=== PATIENT | female | born 1960 | race Native Hawaiian/Other Pacific Islander ===

== ENCOUNTER 2024-09-15 13:49 | Emergency (ER) | payer BC, SELFPAY ==
[2024-09-15 13:50] VITALS: BMI 29.0
[2024-09-15 14:23] VITALS: BP 160/91; PULSE 79; RESP 22; TEMP 36.5; O2SAT 100
--- NOTE | 2024-09-15 14:25 | XR_ITS ---
Examination: CT abdomen and pelvis without contrast. Coronal 3-D reconstructions. Sagittal 2-D reconstructions. Date and time of exam:September 07, 2024 1525 hrs. Indications: Flank pain on the left side beginning 2 hours ago, history kidney stones CTDI: vol (mGy): 9.95 DLP: (mGycm): 506 Technique: Axial images of the abdomen have been obtained, 3 mm slice thickness Intravenous contrast material has not been administered. Low dose protocols were performed. One or more of the following dose reduction techniques were used; automated exposure control, adjustment of the mA and/or KV according to patient size, use of iterative reconstruction technique. Findings: No focal liver or splenic lesions No gallstones Significant bilateral renal parenchymal scar formation with multiple bilateral 1 to 3 mm renal calculi Minimal left hydronephrosis secondary to 3 mm left ureteropelvic junction calculus Atrophic right kidney Aorta demonstrates calcification no aneurysmal dilatation 15 mm fat-containing umbilical hernia Normal appendix No bowel obstruction No diverticulitis Atrophic uterus No bladder mass or bladder calculi Moderate osteopenia Impression: Minimal left hydronephrosis secondary to 3 mm left ureteropelvic junction calculus Bilateral small renal calculi Significant bilateral renal parenchymal scar formation Atrophic right kidney
--- NOTE | 2024-09-15 14:25 | PD.EDRME ---
Rapid Medical Screening Exam RME Arrival date/time: 09/15/24 13:49 63-year-old female past medical history of kidney stones presents emergency department complaining of left flank pain that started today. Chief Complaint: Back Pain/Injury Vital signs: Vital Signs Temperature 97.7 F 09/15/24 14:23 Pulse Rate 79 09/15/24 14:23 Respiratory Rate 22 H 09/15/24 14:23 Blood Pressure 160/91 H 09/15/24 14:23 Pulse Oximetry (%) 100 09/15/24 14:23 Oxygen Delivery Method Room Air 09/15/24 14:23 Vital signs reviewed by provider: Yes
[2024-09-15] MEDS: KETOROLAC INJ 60 MG/2 ML VIAL 30 MG IM ×2 (14:31→16:38)
[2024-09-15 15:11] VITALS: BP 184/91; PULSE 87; RESP 16; TEMP 36.6; O2SAT 100
[2024-09-15 15:33] LABS: Collection Type, Urine Clean Catch
[2024-09-15 15:35] LABS: Basophils # (Auto) 0.1 Thou/mm3 (0.0-0.2); Basophils % (Auto) 0 % (0-2.5); Eosinophils # (Auto) 0.1 Thou/mm3 (0.0-0.5); Eosinophils % (Auto) 1 % (0-10); Hematocrit 38.4 % (36.0-46.0); Hemoglobin 13.5 g/dL (12.0-16.0); Immature Granulocytes % (Auto) 1 % (0-0); Lymphocytes # (Auto) 1.3 Thou/mm3 (1.0-4.8); Lymphocytes % (Auto) 8 % (10-50); Mean Corpuscular HGB Conc 35.2 g/dl (31.0-37.0); Mean Corpuscular Hemoglobin 30.3 pg (25.0-35.0); Mean Corpuscular Volume 86 fL (80-100); Monocytes # (Auto) 0.7 Thou/mm3 (0.0-0.8); Monocytes % (Auto) 5 % (0-12); Neutrophils # (Auto) 13.2 Thou/mm3 (1.8-7.7); Neutrophils % (Auto) 86 % (37-80); Nucleated Red Blood Cell % 0 /100 WBC (0); Platelet Count 232 Thou/mm3 (140-440); RDW Standard Deviation 39.4 fL (36.4-46.3); Red Blood Count 4.46 Miln/mm3 (4.00-5.20); White Blood Count 15.5 Thou/mm3 (3.6-11.0)
[2024-09-15 15:46] LABS: Bilirubin,Urine Negative (Negative); Blood,Urine 3+ (Negative); Clarity,Urine Turbid (Clear/Hazy); Culture Indicated,Urine Not Indicated; Glucose, Urine Negative (Negative); Ketones,Urine 1+ (Negative); Leukocyte Esterase,Urine Negative (Negative); Nitrite,Urine Negative (Negative); Protein,Urine 1+ (Neg - Trace); RBC,Urine 1618 /hpf (0-3); Specific Gravity,Urine 1.015 (1.001-1.035); Squamous Epithelial Cell,Urine < 1 /hpf (0-5); Urobilinogen,Urine Negative mg/dL (0.0-1.0); WBC,Urine 4 /hpf (0-5)
[2024-09-15 15:47] LABS: Alanine Aminotransferase 19 U/L (10-49); Albumin, Serum 4.9 gm/dL (3.4-4.8); Alkaline Phosphatase 81 U/L (46-116); Anion Gap 9 (7-16); Aspartate Amino Transferase 14 U/L (0-34); BUN/Creatinine Ratio 24 Ratio (12-20); Bilirubin,Total 0.6 mg/dL (0.3-1.2); Blood Urea Nitrogen 19 mg/dL (9-23); Calcium 9.9 mg/dL (8.3-10.6); Calcium (Corrected) 9.9 mg/dL (8.5-10.1); Carbon Dioxide 25.1 mMol/L (20.0-31.0); Chloride 104 mMol/L (98-107); Creatinine (Component) 0.8 mg/dL (0.6-1.3); Estimated Creatinine Clearance 66.9 mL/min (>60); Globulin 2.4 gm/dL (2.3-3.5); Glucose 165 mg/dL (74-106); Lipase 53 U/L (12-53); Osmolality,Calculated 281 (275-295); Potassium 3.6 mMol/L (3.4-5.1); Sodium 138 mMol/L (136-145); Total Protein 7.3 gm/dL (5.7-8.2); eGFR > 60 See Note
[2024-09-15 15:47] LABS: Color,Urine Yellow (Lt Yel-Yel)
[2024-09-15 15:49] VITALS: BP 165/97; PULSE 77; RESP 17; TEMP 36.6; O2SAT 99
--- NOTE | 2024-09-15 16:28 | PD.EDBACK ---
ED Back Injury Pain RME/HPI General Chief Complaint: Back Pain/Injury Stated Complaint: LEFT FLANK PAIN Time Seen by Provider: 09/15/24 16:23 Arrival date/time: 09/15/24 13:49 This is a 63-year-old female that comes in with complaints of left flank pain that started today. Patient has a history of kidney stones. Patient also has a history of diabetes high blood pressure and has had C-sections in the past and also a tummy tuck. RME / HPI RME / HPI Narrative: 09/15/24 13:49 63-year-old female past medical history of kidney stones presents emergency department complaining of left flank pain that started today. Related Data Previous Rx's ?Medication ?Instructions ?Recorded hydrocodone 5 mg-acetaminophen 325 1 tab PO Q6H PRN pain #10 tabs 09/15/24 mg tablet ibuprofen 800 mg tablet 800 mg PO Q6H PRN pain #14 tabs 09/15/24 Allergies Allergy/AdvReac Type Severity Reaction Status Date / Time No Known Allergies Allergy Verified 09/15/24 13:50 Review of Systems Review of Systems Systems Reviewed: All systems reviewed, normal except as documented Past Medical History Past Medical History Comments PMH COMMENT: SEE HPI ED Exam General General appearance: Present alert and in no apparent distress Head Head exam: Present atraumatic Eye Eye exam: Present normal appearance, PERRL and EOMI ENT ENT exam: Present normal exam, normal oropharynx and mucous membranes moist Neck Neck exam: Present normal inspection, full ROM and trachea midline Chest Chest inspection: Present normal inspection and symmetric chest wall rise Respiratory Respiratory exam: Present normal lung sounds bilaterally Cardiovascular Cardiovascular exam: Present regular rate, normal rhythm and normal heart sounds Abdominal Exam Abdominal exam: Present soft Extremities Exam Extremities exam: Present normal inspection and full ROM Back Exam Back exam: Present normal inspection and full ROM Neurological Exam Neurological exam: Present alert, oriented X3 and CN II-XII intact Psychiatric Psychiatric exam: Present normal affect and normal mood Skin Skin exam: Present warm, dry, intact and normal color Course Quality Measures none Orders Category Date Time Status CT abdomen pelvis wo con Stat Exams 09/15/24 14:25 Completed CBC Stat Lab 09/15/24 15:11 Completed CMP [Comprehensive Metabolic Panel] Stat Lab 09/15/24 15:11 Completed Lipase Stat Lab 09/15/24 15:11 Completed Urinalysis, C/S if Indicated Stat Lab 09/15/24 15:29 Completed Ketorolac Inj [Toradol Inj] Med 09/15/24 14:25 Discontinued 30 mg IM X1 ONE Ketorolac Inj [Toradol Inj] Med 09/15/24 16:29 Discontinued 30 mg IM X1 ONE Metoclopramide Inj [Reglan Inj] Med 09/15/24 16:29 Discontinued 10 mg IM X1 ONE Morphine Inj Med 09/15/24 16:29 Discontinued 4 mg IM X1 ONE Vital Signs Vital signs: Vital Signs Temperature 97.7 F 09/15/24 14:23 Pulse Rate 79 09/15/24 14:23 Respiratory Rate 22 H 09/15/24 14:23 Blood Pressure 160/91 H 09/15/24 14:23 Pulse Oximetry (%) 100 09/15/24 14:23 Oxygen Delivery Method Room Air 09/15/24 14:23 Back Pain / Injury MDM Narrative MDM Narrative:: ct ABDOMEN AND PELVIS: Findings: No focal liver or splenic lesions No gallstones Significant bilateral renal parenchymal scar formation with multiple bilateral 1 to 3 mm renal calculi Minimal left hydronephrosis secondary to 3 mm left ureteropelvic junction calculus Atrophic right kidney Aorta demonstrates calcification no aneurysmal dilatation 15 mm fat-containing umbilical hernia Normal appendix No bowel obstruction No diverticulitis Atrophic uterus No bladder mass or bladder calculi Moderate osteopenia Impression: Minimal left hydronephrosis secondary to 3 mm left ureteropelvic junction calculus Bilateral small renal calculi Significant bilateral renal parenchymal scar formation Atrophic right kidney Labs were significant for a white count of 15.5 neutrophil 86, BMP unremarkable urine showed blood ketones and RBCs. Patient given Reglan Toradol and morphine for pain. Will send patient home with pain medication. Patient data External records reviewed:: [facility] previous records Clinical information provided by:: patient Social determinants that could affect healthcare access:: none Patient has the following chronic illnesses:: None How is presenting disease/condition affected by chronic disease/condition?: no chronic disease Evaluation data The following diagnostics were reviewed and interpreted by me:: lab results and radiology exam(s) Lab and/or radiology exams considered but not ordered:: NoNE Interpretation Summary: See note Medications / Prescriptions Medications or Prescriptions considered but not ordered:: None Medication administrations:: Medication Administration History Discontinued Medications Ketorolac Tromethamine (Ketorolac Inj 60 Mg/2 Ml Vial) 30 mg IM X1 ONE Stop: 09/15/24 14:26 Last Admin: 09/15/24 14:31 Dose: 30 mg Documented By: KASIA Ketorolac Tromethamine (Ketorolac Inj 60 Mg/2 Ml Vial) 30 mg IM X1 ONE Stop: 09/15/24 16:30 Last Admin: 09/15/24 16:38 Dose: 30 mg Documented By: SAMUEL Metoclopramide HCl (Metoclopramide Inj 5 Mg/Ml Vial 2 Ml) 10 mg IM X1 ONE; Protocol Stop: 09/15/24 16:30 Last Admin: 09/15/24 16:38 Dose: 10 mg Documented By: SAMUEL Morphine Sulfate (Morphine Sulf Inj 10 Mg/Ml Vial) 4 mg IM X1 ONE Stop: 09/15/24 16:30 Last Admin: 09/15/24 16:37 Dose: 4 mg Documented By: SAMUEL See MAR Consultations Consultation(s) initiated? (list below): No Diagnosis Most likely diagnosis given after review of the tests above:: Kidney stones Admission Indicated Admission indicated?: not indicated Admission Request Was there a request for admission?: No Disposition Plan Disposition Plan: Discharge Discharge Attestation Discharge Attestation: The patient and all family members were given an opportunity to ask questions and understood the discharge instructions. Discharge instructions specifically effects, indications for sooner follow up or return to the emergency department, and the expected course of current diagnosis. Patient condition: Stable Discharge Plan Plan Patient Disposition: HOME (Self Care) Patient condition on transfer: Stable Prescriptions/Referrals Prescriptions/Med Rec: New ibuprofen 800 mg tablet 800 mg PO Q6H PRN (Reason: pain) Qty: 14 0RF hydrocodone-acetaminophen 5-325 mg tablet 1 tab PO Q6H MDD 4 PRN (Reason: pain) Qty: 10 0RF Referrals: No Primary/Family,Physician [Primary Care Provider] - In 1 week Problem List Clinical Impression: Hematuria, Kidney stone Patient/Caregiver Discharge Instructions Discharge Activity: activity as tolerated Education Materials: Treating Kidney Stones ..., ED Hematuria Additional Instructions: Follow-up with primary provider in 1 to 2 days. Come back to the emergency room if symptoms change or worsen. Drink plenty of fluids. Follow-up with urology. Print Language: Romansh Stand Alone Forms: Nelda Award Info., Patient Portal Info Letter PA/FUNERAL DIRECTOR'S ASSISTANT Supervising Physician PA/FUNERAL DIRECTOR'S ASSISTANT Supervising Physician: [email or web address]
[2024-09-15] MEDS: MORPHINE SULF INJ 10 MG/ML VIAL 4 MG IM (16:37)
[2024-09-15] MEDS: METOCLOPRAMIDE INJ 5 MG/ML VIAL 2 ML 10 MG IM (16:38)
== END 2024-09-15 17:01 | disposition home or self-care (01) ==
PROVIDERS: Emergency Provider Emergency Medicine
DX: N13.2 Hydronephrosis with renal and ureteral calculous obstruction (principal); N26.1 Atrophy of kidney (terminal); N28.89 Other specified disorders of kidney and ureter; E11.9 Type 2 diabetes mellitus without complications; I10 Essential (primary) hypertension
CPT/HCPCS: 36415; 74176; 80053; 81001; 83690; 85025; 96372; 99284; J1885; J2270; J2765